=== PATIENT | female | born 1950 | race Caucasian/White ===

== ENCOUNTER → 2020-10-15 | Outpatient (CLI) | payer MEDICARE ==
[2020-10-15 12:16] LABS: CHLORIDE 103 MMOL/L (98-107); POTASSIUM 4.2 MMOL/L (3.6-5.0); SODIUM 142 MMOL/L (135-145)
[2020-10-15 12:17] LABS: ALANINE AMINOTRANSFERASE 15 U/L (0-55); ALBUMIN 4.1 GM/DL (3.2-4.5); ALKALINE PHOSPHATASE 91 U/L (40-136); BILIRUBIN,TOTAL 0.4 MG/DL (0.1-1.0); BUN/CREATININE RATIO 13; CALCIUM 9.5 MG/DL (8.5-10.1); CARBON DIOXIDE 29 MMOL/L (21-32); CREATININE SERUM 0.63 MG/DL (0.60-1.30); GFR ESTIMATED > 60; GLUCOSE 89 MG/DL (70-105); TOTAL PROTEIN 7.1 GM/DL (6.4-8.2)
[2020-10-15 14:45] LABS: CHOLESTEROL 167 MG/DL (< 200); HDL CHOLESTEROL 44 MG/DL (40-60); TRIGLYCERIDES 102 MG/DL (<150); VLDL CHOLESTEROL 20 MG/DL (5-40)
== END ==
LOC: LAB FS 11:09
PROVIDERS: ATTEND Family Medicine
DX: I10 Essential (primary) hypertension (principal)
CPT/HCPCS: 36415; 80053; 80061

== ENCOUNTER → 2021-07-28 | Outpatient (CLI) | payer MEDICARE ==
[2021-07-28 08:31] LABS: HEMATOCRIT 51 % (35-52); HEMOGLOBIN 17.5 g/dL (11.5-16.0); MEAN CORPUSCULAR HEMOGLOBIN 35 pg (25-34); MEAN CORPUSCULAR VOLUME 101 fL (80-99); WHITE BLOOD COUNT 7.7 10^3/uL (4.3-11.0)
[2021-07-28 08:32] LABS: BASOPHILS % (AUTO) 1 % (0-10); EOSINOPHILS % (AUTO) 4 % (0-10); LYMPHOCYTES # (AUTO) 1.5 X 10^3 (1.0-4.0); LYMPHOCYTES % (AUTO) 20 % (12-44); MEAN CORPUSCULAR HGB CONC 35 g/dL (32-36); MEAN PLATELET VOLUME 8.7 fL (9.0-12.2); MONOCYTES % (AUTO) 11 % (0-12); NEUTROPHILS # (AUTO) 4.9 X 10^3 (1.8-7.8); NEUTROPHILS % (AUTO) 64 % (42-75); PLATELET COUNT 274 10^3/uL (130-400)
[2021-07-28 08:33] LABS: BASOPHILS # (AUTO) 0.1 10^3/uL (0.0-0.1); EOSINOPHILS # (AUTO) 0.3 10^3/uL (0.0-0.3); MONOCYTES # (AUTO) 0.8 X 10^3 (0.0-1.0)
[2021-07-28 10:36] LABS: POTASSIUM 4.2 MMOL/L (3.6-5.0)
[2021-07-28 10:37] LABS: ALBUMIN 4.2 GM/DL (3.2-4.5); BILIRUBIN,TOTAL 0.5 MG/DL (0.1-1.0); CALCIUM 9.6 MG/DL (8.5-10.1); CREATININE SERUM 0.68 MG/DL (0.60-1.30); TOTAL PROTEIN 7.4 GM/DL (6.4-8.2)
== END ==
LOC: LAB FS 08:02
PROVIDERS: ATTEND Family Medicine
DX: I10 Essential (primary) hypertension (principal); Z76.89 Persons encountering health services in other specified circumstances
CPT/HCPCS: 36415; 80053; 80061; 85025

== ENCOUNTER → 2021-11-18 | Outpatient (CLI) | payer MEDICARE ==
--- NOTE | 2021-11-18 13:10 | Diagnostic Imaging Report ---
INDICATION: Chest pain. COMPARISON: None. FINDINGS: Frontal and lateral views of the chest demonstrate cardiac enlargement with slight central vascular congestion and trace pleural effusions. The mediastinum is widened which may be due to aneurysm or vascular ectasia. Consider CTA of the chest. There is no pneumothorax. The osseous structures are normal. IMPRESSION: 1. Widening of the mediastinum. 2. Slight central vascular congestion with trace pleural effusions. Dictated by: Dictated on workstation # [id number]
== END ==
LOC: RAD FS 12:12
PROVIDERS: ATTEND Family Medicine
DX: J90 Pleural effusion, not elsewhere classified (principal); J98.59 Other diseases of mediastinum, not elsewhere classified
CPT/HCPCS: 71046

== ENCOUNTER → 2021-11-20 | Outpatient (CLI) | payer MEDICARE ==
[~2021-11-20] MED LIST: CATHETER FLUSH 10 ML SYR IV PRN; HOLD METFORMIN - RECEIVED CONTRAST 20 ML VIAL IV SCH; IOHEXOL 350 MG/ML 150 ML (OMNIPAQUE 350) VIAL IV ONE; NS 100 ML (IVPB) BAG IV ONE
[2021-11-20 11:32] LABS: CREATININE SERUM 0.63 MG/DL (0.60-1.30); POTASSIUM 4.3 MMOL/L (3.6-5.0)
[2021-11-20 11:33] LABS: BILIRUBIN,TOTAL 0.3 MG/DL (0.1-1.0); CALCIUM 9.7 MG/DL (8.5-10.1)
[2021-11-20 11:34] LABS: ALBUMIN 4.2 GM/DL (3.2-4.5); TOTAL PROTEIN 7.5 GM/DL (6.4-8.2)
--- NOTE | 2021-11-20 12:51 | Diagnostic Imaging Report ---
PROCEDURE: CT angiography of the chest with contrast. TECHNIQUE: Multiple contiguous axial images were obtained through the chest after uneventful bolus administration of intravenous contrast. 3D reconstructed CTA MIP acquisitions were also performed. Auto Exposure Controls were utilized during the CT exam to meet ALARA standards for radiation dose reduction. INDICATION: Shortness of breath with chest pain. FINDINGS: Bolus IV contrast shows good opacification of the aorta and pulmonary arteries. There are no filling defects to suggest pulmonary emboli. The aorta is atherosclerotic. The descending aorta measuring 4.1 cm. Descending aorta measures 4 cm. There is a mural thrombus present along the descending aorta. There does appear to be a short segment dissection in the mid thoracic aorta extending approximately 5 cm in length. The descending aorta remains dilated to the diaphragm. The upper abdominal aorta just above the celiac artery measures 2.7 cm. The lungs are well-aerated. There is a 5 mm noncalcified nodule anteriorly in the left upper lobe. No mediastinal or hilar adenopathy of pathologic size. No pleural effusion or pericardial effusion. No bony lesions are seen. IMPRESSION: 1. The ascending and descending thoracic aortic aneurysm measuring upwards of 4.1 cm. There does appear to be a flap in the mid descending thoracic aorta extending approximately 5 to 6 cm in length consistent with either a focal aortic dissection or a dissection along the mural thrombus. 2. 5 mm noncalcified nodule in the left upper lobe. Follow-up depending on patient's clinical risk factors a per Fleischner recommendations. Dictated by: Dictated on workstation # [id number]
== END ==
LOC: RAD FS 10:56
PROVIDERS: ATTEND Family Medicine
DX: I11.9 Hypertensive heart disease without heart failure (principal); I71.2 Thoracic aortic aneurysm, without rupture; R91.1 Solitary pulmonary nodule
CPT/HCPCS: 36415; 71275; 80053; Q9967

== ENCOUNTER → 2022-03-10 | Outpatient (CLI) | payer MEDICARE ==
--- NOTE | 2022-03-10 18:16 | Diagnostic Imaging Report ---
INDICATION: Lower back pain. COMPARISON: None. FINDINGS: Multiple frontal and lateral radiographic views of the lumbar spine were obtained. Evaluation of static alignment shows slight grade 1 retrolisthesis at L2-L3 and mild grade 1 anterolisthesis at L4-L5. There is no evidence of jumped facets. Vertebral body heights are maintained. There is no acute fracture. Advanced multilevel degenerative changes are present and consistent with advanced intervertebral disc height loss with anterior and posterior endplate osteophyte formations, as well as multilevel facet arthropathy. These changes are greatest at the T12-L3 levels. Included small bowel loops are nondistended. Note is made of moderate calcified aortic atherosclerosis. IMPRESSION: 1. No acute fracture or dislocation of the lumbar spine. 2. Advanced multilevel degenerative changes. Dictated by: Dictated on workstation # [id number]
== END ==
LOC: RAD FS 13:39
PROVIDERS: ATTEND Family Medicine
DX: M47.816 Spondylosis without myelopathy or radiculopathy, lumbar region (principal)
CPT/HCPCS: 72100

== ENCOUNTER → 2022-03-19 | Outpatient (CLI) | payer MEDICARE ==
--- NOTE | 2022-03-19 14:46 | Diagnostic Imaging Report ---
CLINICAL INDICATION: Patient with lumbar radiculopathy. EXAM: MRI of the lumbar spine without contrast. Sequences include sagittal T2, sagittal T1, sagittal T2 fat-sat, and axial T2. COMPARISON: X-ray of the lumbar spine dated 03/10/2022. This is described on the comparison CT angiogram of the chest dated 11/20/2021. FINDINGS: There is concern for aneurysmal dilation of the abdominal aorta, which appears to be below and/or near the region of the renal arteries. This aneurysm measures at least 4.0 cm in transverse dimension. This area is incompletely imaged. Right renal cyst is seen. There is no acute lumbar spine fracture. There are Modic type I degenerative signal changes seen involving the T10 through L3 endplates with a small amount involving the L5-S1 endplates. The visualized portions of the distal thoracic spinal cord, conus medullaris, and cauda equina nerve roots are unremarkable. The conus medullaris tip is seen grossly at the L1-L2 intervertebral level. There is some motion artifact limiting evaluation of the central canal. There is no significant paraspinal soft tissue abnormality. There are hypertrophic spurs throughout the lumbar spine and multilevel facet arthropathy. Visualized Lower Thoracic Spine: There are diffuse disc bulges seen at the T9-T10, T10-T11, T11-T12, and T12-L1 levels. There is moderate central canal stenosis at the T9-T10, T10-T11, and T12-L1 levels. There is severe left T10-T11 neural foramen narrowing and severe right T12-L1 neural foramen narrowing. There is facet arthropathy. L1-L2: There is subtle grade 1 anterolisthesis of L1 on L2. There is a diffuse disc bulge with endplate irregularity and severe loss of disc space height. There is moderate bilateral facet arthropathy with hypertrophic changes on the left. There is severe central canal stenosis, severe neural foramen narrowing, and at least moderate left neural foramen narrowing. L2-L3: There is subtle grade 1 retrolisthesis of L2 on L3. There is a diffuse disc bulge with severe loss of disc space height and endplate irregularity. There is moderate bilateral facet arthropathy/hypertrophy. There is severe central canal stenosis, [id number] right neural foramen narrowing, and severe left neural foramen narrowing. L3-L4: There is a mild diffuse disc bulge and moderate bilateral facet arthropathy. There is mild central canal narrowing and mild bilateral neural foramen narrowing. L4-L5: There is grade 1 anterolisthesis of L4 on L5. There is a diffuse disc bulge with moderate loss of disc space height. There is severe bilateral facet arthropathy/hypertrophy. There is a small synovial cyst extending from the medial aspect of the left L4-L5 facet region. This synovial cyst measures 9 mm x 4 mm x 11 mm in craniocaudal dimensions. L5-S1: There is a diffuse disc bulge with moderate loss of disc space height. There is moderate bilateral facet arthropathy. There is no significant central canal stenosis. There is severe bilateral neural foramen narrowing. IMPRESSION: 1: There is severe multilevel thoracolumbar spine degenerative disc disease which is described in detail above. 2: Incompletely imaged abdominal aortic aneurysm. This is described on comparison CT angiogram of the chest dated 11/20/2021. Dictated by: Dictated on workstation # [id number]
== END ==
LOC: RAD 09:36
PROVIDERS: ATTEND Family Medicine
DX: M47.814 Spondylosis without myelopathy or radiculopathy, thoracic region (principal); M47.26 Other spondylosis with radiculopathy, lumbar region; M47.817 Spondylosis without myelopathy or radiculopathy, lumbosacral region; M51.24 Other intervertebral disc displacement, thoracic region; M51.16 Intervertebral disc disorders with radiculopathy, lumbar region; M51.27 Other intervertebral disc displacement, lumbosacral region; M51.37 Other intervertebral disc degeneration, lumbosacral region; M48.04 Spinal stenosis, thoracic region; M48.061 Spinal stenosis, lumbar region without neurogenic claudication; M48.07 Spinal stenosis, lumbosacral region; M43.16 Spondylolisthesis, lumbar region
CPT/HCPCS: 72148

== ENCOUNTER → 2022-05-20 | Outpatient (CLI) | payer MEDICARE ==
[2022-05-20 10:39] LABS: BASOPHILS # (AUTO) 0.1 10^3/uL (0.0-0.1); BASOPHILS % (AUTO) 1 % (0-10); EOSINOPHILS # (AUTO) 0.4 10^3/uL (0.0-0.3); EOSINOPHILS % (AUTO) 5 % (0-10); HEMATOCRIT 48 % (35-52); LYMPHOCYTES # (AUTO) 1.9 10^3/uL (1.0-4.0); LYMPHOCYTES % (AUTO) 21 % (12-44); MEAN CORPUSCULAR HEMOGLOBIN 35 pg (25-34); MEAN CORPUSCULAR HGB CONC 35 g/dL (32-36); MEAN CORPUSCULAR VOLUME 100 fL (80-99); MEAN PLATELET VOLUME 8.9 fL (9.0-12.2); MONOCYTES # (AUTO) 1.1 10^3/uL (0.0-1.0); MONOCYTES % (AUTO) 12 % (0-12); NEUTROPHILS # (AUTO) 5.8 10^3/uL (1.8-7.8); NEUTROPHILS % (AUTO) 61 % (42-75); PLATELET COUNT 252 10^3/uL (130-400); WHITE BLOOD COUNT 9.4 10^3/uL (4.3-11.0)
[2022-05-20 11:02] LABS: BAND NEUTROPHILS 1 %; BASOPHILS % (MANUAL) 1 %; EOSINOPHILS % (MANUAL) 5 %; LYMPHOCYTES % (MANUAL) 22 %; MONOCYTES % (MANUAL) 10 %; NEUTROPHILS % (MANUAL) 61 %; PLATELET ESTIMATE NORMAL
[2022-05-20 11:03] LABS: ALBUMIN 4.2 GM/DL (3.2-4.5); BILIRUBIN,TOTAL 0.3 MG/DL (0.1-1.0); CALCIUM 9.7 MG/DL (8.5-10.1); CREATININE SERUM 0.59 MG/DL (0.60-1.30); POTASSIUM 4.2 MMOL/L (3.6-5.0); TOTAL PROTEIN 7.4 GM/DL (6.4-8.2)
== END ==
LOC: LAB FS 10:22
PROVIDERS: ATTEND Family Medicine
DX: E78.5 Hyperlipidemia, unspecified (principal); I10 Essential (primary) hypertension; D75.1 Secondary polycythemia; J44.9 Chronic obstructive pulmonary disease, unspecified
CPT/HCPCS: 36415; 80053; 85007; 85027